=== PATIENT | male | born 1990 | race Caucasian/White ===

== ENCOUNTER 2018-08-18 07:02 | Emergency (ER) | payer OTHER ==
[~2018-08-18] VITALS: Ht 167.6 cm; Wt 88.5 kg
[2018-08-18 07:10] VITALS: BP_SYST 117
--- NOTE | 2018-08-18 07:10 | NUR ---
Patient to ER bed 04 to gown for evaluation. Side rails up.
--- NOTE | 2018-08-18 07:35 | NUR ---
Pt bib caregiver c/o fever and cough x 2-3 days. Pt is mentally challenged,no acute distress at time. Caregiver reports pt has temp 103 at home improved after medication.
--- NOTE | 2018-08-18 07:40 | NUR ---
ER at bedside examining patient.
[2018-08-18 08:31] LABS: INFLUENZA A&B ANTIGEN SCREEN NEGATIVE FOR A & B (NEGATIVE)
[2018-08-18 08:39] LABS: STREPTOCOCCUS A SCREEN (RAPID) NEGATIVE (NEGATIVE)
--- NOTE | 2018-08-18 09:00 | NUR ---
at bedside to explain findings
[2018-08-18 09:10] VITALS: BP_SYST 118
--- NOTE | 2018-08-18 09:20 | NUR ---
Patient given written and verbal discharge instructions and verbalizes understanding. ER MD discussed with patient the results and treatment provided. Patient in stable condition. ID arm band removed. Rx of MOTRIN,ZITHROMAX given. Patient educated on pain management and to follow up with PMD. Pain Scale 0. Opportunity for questions provided and answered. Medication side effect fact sheet provided.
== END 2018-08-18 09:20 | disposition home or self-care (01) ==
LOC: SED 07:02
DX: J02.9 Acute pharyngitis, unspecified (principal)
CPT/HCPCS: 36415; 71045; 86403; 86710; 87081; 99284; J7030

== ENCOUNTER 2018-08-19 09:31 | Emergency (ER) | payer OTHER ==
[~2018-08-19] VITALS: Ht 167.6 cm; Wt 88.5 kg
[2018-08-19 09:36] VITALS: BP_SYST 121
[2018-08-19] MEDS ORDERED: ONDANSETRON HCL 4 MG/2 ML VIAL IVP ONE (09:45)
[2018-08-19] MEDS ORDERED: NACL 0.9% 1,000 ML IV ONE (09:45)
[2018-08-19] MEDS ORDERED: ONDANSETRON HCL 4 MG/2 ML VIAL ONE (09:54)
[2018-08-19] MEDS ORDERED: AZITHROMYCIN 250 MG TABLET PO ONE (10:00)
[2018-08-19] MEDS ORDERED: ONDANSETRON 4 MG ODT TAB PO ONE (10:00)
[2018-08-19] MEDS ORDERED: ONDANSETRON 4 MG ODT TAB ONE (10:06)
[2018-08-19 10:30] VITALS: BP_SYST 125
== END 2018-08-19 10:30 | disposition home or self-care (01) ==
LOC: SED 09:31
DX: R11.2 Nausea with vomiting, unspecified (principal); R50.9 Fever, unspecified
CPT/HCPCS: 99283; J2405; Q0144; Q0162